=== PATIENT | male | born 1990 | race Caucasian/White ===

== ENCOUNTER 2018-01-25 10:58 | Day surgery (SDC) | payer OTHER, MEDICAID ==
[2018-01-25] MEDS ORDERED: LIDOCAINE 2% (SDV) 5 ML INJ (15:28)
[2018-01-25] MEDS ORDERED: MIDAZOLAM 1 MG/ML 2 ML INJ (15:28)
[2018-01-25] MEDS ORDERED: FENTAnyl 50 MCG/ML VIAL IV ×3 (15:30)
[2018-01-25] MEDS ORDERED: DIPHENHYDRAMINE 50 MG INJ IV (15:30)
[2018-01-25] MEDS ORDERED: HYDROmorphONE 1 MG/5 ML IV SYRINGE IV ×2 (15:30)
[2018-01-25] MEDS ORDERED: PROCHLORPERAZINE 10 MG INJ IV (15:30)
[2018-01-25] MEDS ORDERED: OXYCODONE/ACETAMINOPHEN (5/325) TAB PO (15:30)
[2018-01-25] MEDS ORDERED: OXYMETAZOLINE 0.05% 15 ML NAS SPRAY NASAL (15:44)
[2018-01-25] MEDS ORDERED: FAMOTIDINE 20 MG INJ (15:45)
[2018-01-25] MEDS ORDERED: DEXAMETHASONE 4 MG/ML 1 ML INJ (15:45)
[2018-01-25] MEDS ORDERED: ONDANSETRON 4 MG INJ (15:45)
[2018-01-25] MEDS ORDERED: SUCCINYLCHOLINE CHLORIDE 100 MG/5 ML SYG IV (15:48)
[2018-01-25] MEDS ORDERED: ROCURONIUM 50 MG INJ (15:48)
[2018-01-25] MEDS ORDERED: PROPOFOL 40 ML (15:48)
[2018-01-25] MEDS ORDERED: FENTAnyl 50 MCG/ML VIAL (15:50)
[2018-01-25] MEDS: BACITRACIN/POLYMYXIN 28.35 GM OINT TOP (15:54)
[2018-01-25] MEDS: COCAINE 4% 4 ML TOP (15:55)
[2018-01-25] MEDS: LIDOCAINE 1%/EPI 30 ML INJ (15:55)
[2018-01-25] MEDS ORDERED: SUGAMMADEX SODIUM 200 MG/2 ML VIAL IV (16:04)
[2018-01-25] MEDS: MEPERIDINE 25 MG INJ IV (16:33)
[2018-01-25] MEDS: ONDANSETRON 4 MG INJ IV (16:33)
[2018-01-25] MEDS: HYDROmorphONE 1 MG/5 ML IV SYRINGE IV (16:53)
[2018-01-25] MEDS ORDERED: LABETALOL HCL 20MG INJ IV (17:00)
[2018-01-25] MEDS ORDERED: hydrALAzine 20 MG INJ IV (17:00)
== END 2018-01-25 18:10 | disposition home or self-care (01) ==
LOC: SDS 10:58
DX: J34.2 Deviated nasal septum (principal)
CPT/HCPCS: 30140